=== PATIENT | female | born 2000 | race Caucasian/White ===

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

== ENCOUNTER 2019-03-19 20:33 | Emergency (ER) | payer SELFPAY ==
[~2019-03-19] VITALS: Ht 154.9 cm; Wt 51.5 kg
[~2019-03-19 20:33] MED LIST changes: +EXCED PO; +ONDA4TAB14 PO
[2019-03-19 22:01] VITALS: Ht 154.9 cm; Wt 51.5 kg
--- NOTE | 2019-03-19 23:34 | ERD ---
ER Documentation Chief Complaint Chief Complaint PELVIC PAIN AND VAGINAL BLEEDING X 1 DAY HPI 19-year-old female, G2, P1 at approximately 5 weeks EGA by LMP 02/07/2019, presents the emergency department, complaining of 1 day with vaginal spotting. The patient reports a positive test at home today. She denies fever or chills, no dysuria, no abdominal pain, no establish yet. ROS All systems reviewed and are negative except as per history of present illness. Medications Home Meds Active Scripts Ondansetron (Ondansetron Odt) 4 Mg Tab.rapdis, 4 MG PO Q6H PRN for NAUSEA AND/OR VOMITING, #20 TAB Prov:CHRIS ULLOA PA-C 12/11/18 Acetaminophen/Aspirin/Caffeine* (Excedrin*) 1 Tab Tab, 2 TAB PO Q6, #30 TAB Prov:CHRIS ULLOA PA-C 12/11/18 Ibuprofen* (Ibuprofen*) 600 Mg Tablet, 600 MG PO Q6, #30 TAB 0 Refills Prov:CECELIA THOMPSON MD 08/13/17 Allergies Allergies: Coded Allergies: levofloxacin (Verified Allergy, Severe, anaphylaxis, 12/11/18) peanut (Verified Allergy, Severe, anaphylaxis, 12/11/18) amoxicillin (Verified Allergy, Mild, 12/11/18) clavulanic acid (Verified Allergy, Mild, 12/11/18) PMhx/Soc Medical and Surgical Hx: pt denies Medical Hx, pt denies Surgical Hx Hx Miscellaneous Medical Probl: Yes (kidney stones) Hx Alcohol Use: No Hx Substance Use: No Hx Tobacco Use: No Smoking Status: Never smoker FmHx Family History: No diabetes, No coronary disease Physical Exam Vitals Vital Signs Date Temp Pulse Resp B/P (MAP) Pulse Ox O2 O2 Flow FiO2 Time Delivery Rate 03/20/19 98.5 69 18 119/74 100 01:25 (89) 03/19/19 98.9 67 18 125/73 100 22:01 (90) Physical Exam Const: No acute distress Head: Atraumatic Eyes: Normal Conjunctiva ENT: Normal External Ears, Nose and Mouth. Neck: Full range of motion. No meningismus. Resp: Clear to auscultation bilaterally Cardio: Regular rate and rhythm, no murmurs Abd: Soft, non tender, non distended. Normal bowel sounds Skin: No petechiae or rashes Back: No midline or flank tenderness Ext: No cyanosis, or edema Neur: Awake and alert Psych: Normal Mood and Affect Result Diagram: 03/19/19 2342 Results 24 hrs Laboratory Tests Test 03/19/19 23:41 03/19/19 23:42 03/19/19 23:52 POC Beta HCG, Qualitative POSITIVE White Blood Count 11.9 10^3/ul Red Blood Count 4.98 10^6/ul Hemoglobin 14.2 g/dl Hematocrit 40.6 % Mean Corpuscular Volume 81.5 fl Mean Corpuscular Hemoglobin 28.5 pg Mean Corpuscular Hemoglobin Concent 35.0 g/dl Red Cell Distribution Width 13.2 % Platelet Count 318 10^3/UL Mean Platelet Volume 10.2 fl Immature Granulocytes % 0.400 % Neutrophils % 62.1 % Lymphocytes % 30.2 % Monocytes % 5.8 % Eosinophils % 0.9 % Basophils % 0.6 % Nucleated Red Blood Cells % 0.0 /100WBC Immature Granulocytes # 0.050 10^3/ul Neutrophils # 7.4 10^3/ul Lymphocytes # 3.6 10^3/ul Monocytes # 0.7 10^3/ul Eosinophils # 0.1 10^3/ul Basophils # 0.1 10^3/ul Nucleated Red Blood Cells # 0.0 10^3/ul Beta HCG, Quantitative 94.2 mIU/ml Bedside Urine pH (LAB) 5.5 Bedside Urine Protein (LAB) Negative Bedside Urine Glucose (UA) Negative Bedside Urine Ketones (LAB) Trace Bedside Urine Blood Negative Bedside Urine Nitrite (LAB) Negative Bedside Urine Leukocyte Esterase (L Negative Patient: AURORA PEDROZA : 2000 Age: 19 Sex: F MR #: [id number] DOS: 03/19/19 2331 Ordering MD: BEAR PEDRAZA MD Location: [facility] Room/Bed: PROCEDURE: Ultrasound of the pelvis. CLINICAL INDICATION: Spotting. . TECHNIQUE: Transabdominal [<and transvaginal>] ultrasound of the pelvis was performed.>] COMPARISON: [<There are no similar studies submitted for comparison.>] FINDINGS: LAST MENSTRUAL PERIOD: 02/10/2019 UTERUS and GESTATIONAL SAC Endometrium: 10 mm No evidence of an intrauterine gestational sac. OVARIES Right ovary: 3.2 x 1.5 x 2.5 cm Findings: [<There is Doppler flow to the right ovary.>][<There is no ovarian lesion or cyst.>] Left ovary: 2.9 x 1.5 x 2.3 cm Findings: [<There is Doppler flow to the left ovary.>][<There is no ovarian le vijay or cyst.>] Cul-de-sac: There is trace free fluid. IMPRESSION: 1. No evidence of an intrauterine or extrauterine . Correlation with serial quantitative beta HCG levels and short term follow-up pelvic ultrasound recommended. 2. Trace free fluid in the cul-de-sac. Procedures/MDM Vital signs stable, Physical exam unremarkable. Differential diagnosis include but not limited to: UTI, threatening , incomplete versus complete , ectopic , physiologic implantation bleeding, molar . Physical examination and clinical presentation most likely consistent with early versus threatening . During the ED course the patient remained hemodynamically stable and asymptomatic. Results and clinical impression discussed with patient who agrees with management. The patient is stable to be treated outpatient and will be discharged home with close monitoring and follow-up in 2 days with her primary physician. Bed rest and pelvic rest recommended until further medical evaluation. The patient was instructed regarding the outcomes and the potential complications like severe bleeding and . If the patient presents severe bleeding or pain, she was instructed to return to the hospital immediately. Disclaimer: Inadvertent spelling and grammatical errors are likely due to EHR/dictation software use and do not reflect on the overall quality of patient care. Also, please note that the electronic time recorded on this note does not necessarily reflect the actual time of the patient encounter. Departure Diagnosis: Primary Impression: Vaginal bleeding Additional Impression: test positive Condition: Stable Additional Instructions: Thank you very much for allowing us to participate in your care. Your health and safety is our top priority at [facility]. The evaluation in the emergency department has been done to rule out an acute emergency. Chronic, [id number] conditions may have not been evaluated; therefore, you need to follow up with a primary care provider in the next 48h. If symptoms persist, worsen or new symptoms develop, then patient should return to the ED immediately. Call your primary care doctor TOMORROW for an appointment during the next 2-4 days and bring all the information provided. Have prescriptions filled and follow precisely the directions on the label. If the symptoms get worse and your provider is unavailable, return to the Emergency Department immediately. BEAR PEDRAZA MD Mar 19, 2019 23:34
[2019-03-20 01:25] VITALS: BP 119/74; PULSE 69; RESP 18
== END 2019-03-20 01:26 | disposition home or self-care (01) ==
LOC: FTE 20:33
DX: I20.9 Angina pectoris, unspecified (principal); R10.2 Pelvic and perineal pain; Z3A.01 Less than 8 weeks gestation of pregnancy
CPT/HCPCS: 36415; 76801; 76817; 81003; 81025; 84702; 85025

== ENCOUNTER 2019-04-04 14:36 | Emergency (ER) | payer MEDICAID ==
[~2019-04-04] VITALS: Ht 154.9 cm; Wt 52.9 kg
[2019-04-04 14:55] VITALS: BP 116/58; PULSE 83; RESP 18; Ht 154.9 cm; Wt 52.9 kg
[2019-04-04] MEDS ORDERED: METOCLOPRAMIDE 10 MG INJ IV STA (16:09)
--- NOTE | 2019-04-04 16:15 | ERD ---
ER Documentation Chief Complaint Chief Complaint ABD. PAIN, N/V FOR 2 DAYS WITH ABD. CRAMPS. NO BLEED. 6 WKS . HPI Patient is a 19-year-old female who presents to the ER for concerns of pelvic pain, nausea and vomiting for 2 days. Patient states she is having difficulty keeping fluids down. Patient states she is approximately 6 weeks . Patient denies any vaginal bleeding. Patient denies any fevers or chills. Patient denies any upper abdominal pain. She denies any dysuria, frequency, urgency or hematuria. Patient denies any diarrhea. Patient denies any chest pain, shortness of breath or LOC. Patient is G3, . Last menstrual period was on 02/18/19. ROS All systems reviewed and are negative except as per history of present illness. Medications Home Meds Active Scripts Metoclopramide* (Reglan*) 10 Mg Tablet, 10 MG PO Q6 PRN for NAUSEA AND/OR VOMITING, #10 TAB Prov:MERLY GRACIA PA-C 04/04/19 Ondansetron (Ondansetron Odt) 4 Mg Tab.rapdis, 4 MG PO Q6H PRN for NAUSEA AND/OR VOMITING, #20 TAB Prov:CHRIS ULLOA PA-C 12/11/18 Acetaminophen/Aspirin/Caffeine* (Excedrin*) 1 Tab Tab, 2 TAB PO Q6, #30 TAB Prov:CHRIS ULLOA PA-C 12/11/18 Ibuprofen* (Ibuprofen*) 600 Mg Tablet, 600 MG PO Q6, #30 TAB 0 Refills Prov:CECELIA THOMPSON MD 08/13/17 Allergies Allergies: Coded Allergies: levofloxacin (Verified Allergy, Severe, anaphylaxis, 04/04/19) peanut (Verified Allergy, Severe, anaphylaxis, 04/04/19) amoxicillin (Verified Allergy, Mild, 04/04/19) clavulanic acid (Verified Allergy, Mild, 04/04/19) PMhx/Soc Hx Miscellaneous Medical Probl: Yes (kidney stones) Hx Alcohol Use: No Hx Substance Use: No Hx Tobacco Use: No FmHx Family History: No diabetes Physical Exam Vitals Vital Signs Date Temp Pulse Resp B/P (MAP) Pulse Ox O2 O2 Flow FiO2 Time Delivery Rate 04/04/19 99.2 83 18 116/58 100 14:55 (77) Physical Exam GENERAL: Well-developed, well-nourished female. Appears in no acute distress. HEAD: Normocephalic, atraumatic. EYES: Pupils are equally reactive bilaterally. EOMs grossly intact. No conjunctival erythema. NECK: Supple. No meningismus. Normal range of motion of the neck. LUNG: Clear to auscultation bilaterally. No rhonchi, wheezing, rales or coarse breath sounds. HEART: Regular rate and rhythm. No murmurs, rubs or gallops. ABDOMEN: No scars, ecchymosis or rashes noted. Soft, nontender, and nondistended. Positive bowel sounds in all four quadrants. No rebound tenderness, no guarding. (-) McBurney's point tenderness. No CVA tenderness. EXTREMITIES: Equal pulses bilaterally. No peripheral clubbing, cyanosis or edema. No unilateral leg swelling. NEUROLOGIC: Alert and oriented. Moving all four extremities without any difficulty. Normal speech. Steady gait. SKIN: Normal color. Warm and dry. No rashes or lesions. Result Diagram: 04/04/19 1718 04/04/19 1718 Results 24 hrs Laboratory Tests Test 04/04/19 17:13 04/04/19 17:18 Urine Color YELLOW Urine Clarity SLIGHTLY CLOUDY Urine pH 5.0 Urine Specific [place] 1.029 Urine Ketones NEGATIVE mg/dL Urine Nitrite NEGATIVE mg/dL Urine Bilirubin NEGATIVE mg/dL Urine Urobilinogen NEGATIVE mg/dL Urine Leukocyte Esterase NEGATIVE Amy/ul Urine Microscopic RBC 1 /HPF Urine Microscopic WBC 1 /HPF Urine Squamous Epithelial Cells FEW /HPF Urine Mucus FEW /HPF Urine Hemoglobin NEGATIVE mg/dL Urine Glucose NEGATIVE mg/dL Urine Total Protein NEGATIVE mg/dl White Blood Count 11.8 10^3/ul Red Blood Count 5.00 10^6/ul Hemoglobin 14.4 g/dl Hematocrit 41.9 % Mean Corpuscular Volume 83.8 fl Mean Corpuscular Hemoglobin 28.8 pg Mean Corpuscular Hemoglobin Concent 34.4 g/dl Red Cell Distribution Width 13.2 % Platelet Count 309 10^3/UL Mean Platelet Volume 9.9 fl Immature Granulocytes % 0.500 % Neutrophils % 68.9 % Lymphocytes % 21.5 % Monocytes % 7.1 % Eosinophils % 1.6 % Basophils % 0.4 % Nucleated Red Blood Cells % 0.0 /100WBC Immature Granulocytes # 0.060 10^3/ul Neutrophils # 8.1 10^3/ul Lymphocytes # 2.5 10^3/ul Monocytes # 0.8 10^3/ul Eosinophils # 0.2 10^3/ul Basophils # 0.1 10^3/ul Nucleated Red Blood Cells # 0.0 10^3/ul Sodium Level 140 mmol/L Potassium Level 3.6 mmol/L Chloride Level 105 mmol/L Carbon Dioxide Level 24 mmol/L Anion Gap 11 Blood Urea Nitrogen 13 mg/dl Creatinine 0.43 mg/dl Est Glomerular Filtrat Rate mL/min > 60 mL/min Glucose Level 74 mg/dl Calcium Level 9.3 mg/dl Total Bilirubin 0.4 mg/dl Direct Bilirubin 0.00 mg/dl Indirect Bilirubin 0.4 mg/dl Aspartate Amino Transf (AST/SGOT) 15 IU/L Alanine Aminotransferase (ALT/SGPT) 21 IU/L Alkaline Phosphatase 51 IU/L Total Protein 8.5 g/dl Albumin 4.5 g/dl Globulin 4.00 g/dl Albumin/Globulin Ratio 1.12 Lipase 80 U/L Beta HCG, Quantitative 47929.0 mIU/ml Current Medications Medications Dose Sig/Mg Start Time Status Last (Trade) Ordered Route PRN Stop Time Admin Dose Reason Admin 10 mg ONCE STAT 04/04/19 DC 04/04/19 Metoclopramid IV 16:09 17:22 e HCl 04/04/19 16:12 (Reglan) Sodium 1,000 ml @ Q1H ONCE 04/04/19 DC 04/04/19 Chloride 1,000 mls/hr IV 16:30 17:22 04/04/19 17:29 Procedures/MDM ED COURSE: The patient was stable throughout ED course. I kept the patient and/or family informed of laboratory and diagnostic imaging results throughout the ED course. DIAGNOSTIC IMAGING: Read by radiologist. Patient: AURORA PEDROZA : 2000 Age: 19 Sex: F MR #: [id number] DOS: 04/04/19 1609 Ordering MD: MERLY GRACIA PA-C Location: [facility] Room/Bed: PROCEDURE: US OB. CLINICAL INDICATION: Vaginal bleeding in early . TECHNIQUE: Transabdominal and transvaginal views of the pelvis are available for review. COMPARISON: No prior studies are available for comparison. FINDINGS: A single intrauterine gestational sac is evident. A yolk sac is evident. [place]-rump length: 3 mm Gestational sac diameter: 13 mm heart rate: 110 beats per minute. Ultrasound estimated gestational age: 6 weeks 0 days No ovarian or adnexal mass lesion is seen. There is no free fluid. . IMPRESSION: 1. Single live intrauterine with an estimated gestational age of 6 weeks 0 days. This yields an estimated due date of 11/28/2019, concordant with menstrual dates. RPTAT:AAJJ Physician Star Date Time Electronically viewed and signed by Physician Star on 04/04/2019 18:17 GW/ CC: MERLY GRACIA PA-C [id number] PROCEDURES: None. MEDICATIONS GIVEN: IV fluids, Reglan Patient tolerated medication well with no adverse reactions. Patient reported improvement in pain. MEDICAL DECISION MAKING: This is a 19-year-old female, G3, P1, approximate 6 weeks , presents to the ER for concerns of pelvic pain, nausea and vomiting for the last 2 days. Patient denies any vaginal bleeding. Vital signs were reviewed. Patient is afebrile. IV line was established. Blood work was obtained. CBC showed no evidence of systemic infection or severe anemia. CMP showed no evidence of electrolyte abnormalities, severe acidosis, alkalosis, renal failure, or liver disease. Lipase showed no evidence of acute pancreatitis. UA showed no evidence of acute infection or hematuria. Pelvic ultrasound showed live intrauterine gestation of 6 weeks and 0 days. Upon reexamination, patient reported improvement in symptoms. Patient was given p.o. fluids and had no episodes of vomiting. At this time, the patient presentation most consistent with nausea and vomiting in the setting of . Differential diagnosis included but was not limited to spontaneous , missed , for acute coronary syndrome, AAA, mesenteric ischemia, lower lobe pneumonia, DKA, bowel perforation, cholecystitis, choled ocholithiasis, ascending cholangitis, hepatic abscess, pancreatitis, PUD, gastritis, GERD, splenic rupture, diverticulitis, UTI, pyelonephritis, nephrolithiasis, appendicitis, constipatio, ectopic , PID, ovarian torsion or tubo-ovarian abscess. Patient was nontoxic, [id number] prior to discharge. PRESCRIPTIONS: Reglan DISCHARGE: At this time, patient is stable for discharge and outpatient management. I have instructed the patient to follow-up with his/her primary care physician in 1-2 days. I have instructed the patient to promptly return to the ER at any time for any new or worsening symptoms including increased pain, nausea, vomiting, diarrhea, fever, weakness or LOC. The patient and/or family expressed understanding of and agreement with this plan. All questions were answered. Home care instructions were provided. Disclaimer: Inadvertent spelling and grammatical errors are likely due to EHR/dictation software use and do not reflect on the overall quality of patient care. Also, please note that the electronic time recorded on this note does not necessarily reflect the actual time of the patient encounter. Departure Diagnosis: Primary Impression: Nausea & vomiting Vomiting type: unspecified Vomiting Intractability: unspecified Qualified Codes: R11.2 - Nausea with vomiting, unspecified Additional Impression: Weeks of gestation: unspecified Qualified Codes: Z34.90 - Encounter for supervision of normal , unspecified, unspecified trimester Condition: Fair Patient Instructions: : Your First Trimester Changes Referrals: JAMISON URIBE MD (PCP) Additional Instructions: Follow up with Dr. Anthony in the next 1-2 days. Call your primary care doctor TOMORROW for an appointment during the next 1-2 days.See the doctor sooner or return here if your condition worsens before your appointment time. MERLY GRACIA PA-C Apr 04, 2019 16:15
[2019-04-04] MEDS ORDERED: SOD CHLORIDE 0.9% 1,000 ML IV ONE (16:30)
[2019-04-04] MEDS ORDERED: METO10TA92 PO (18:35)
== END 2019-04-04 19:29 | disposition home or self-care (01) ==
LOC: FTE 14:36
DX: O21.9 Vomiting of pregnancy, unspecified (principal); R10.2 Pelvic and perineal pain; Z3A.01 Less than 8 weeks gestation of pregnancy
CPT/HCPCS: 36415; 76801; 76817; 80053; 81001; 81003; 83690; 84702; 85025; 96361; 96374; J2765; J7030; Z7502